=== PATIENT | female | born 1995 | race Caucasian/White ===

== ENCOUNTER 2023-11-20 20:05 | Emergency (ER) | payer OTHER, SELFPAY ==
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
[2023-11-20 20:41] VITALS: BP 122/77; PULSE 72; RESP 18; TEMP 36.9; O2SAT 100
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
[2023-11-20] MEDS: IBUPROFEN 400 MG TABLET 800 MG PO (22:07)
[2023-11-20 22:42] VITALS: BP 129/90; PULSE 62; RESP 16; TEMP 36.6; O2SAT 98
== END 2023-11-20 22:43 | disposition home or self-care (01) ==
PROVIDERS: Emergency Provider Emergency Medicine
DX: S80.12XA Contusion of left lower leg, initial encounter (principal); S09.90XA Unspecified injury of head, initial encounter; V89.2XXA Person injured in unspecified motor-vehicle accident, traffic, initial encounter
CPT/HCPCS: 73590; 99283; A9270